=== PATIENT | female | born 1985 | race Caucasian/White ===

== ENCOUNTER 2017-11-18 14:13 | Day surgery (SDC) | payer OTHER, MEDICAID, SELFPAY ==
--- NOTE | 2017-11-18 | PATH_ITS ---
[facility] Accession Number: [id number] . 01 Material submitted: . PART A: SMALL BOWEL BIOPSY PART B: STOMACH BODY AND ANTRUM BIOPSY . 02 Diagnosis: A. Small Bowel, Biopsy: Small bowel mucosa with no diagnostic abnormality. Negative for active inflammation, features of sprue, dysplasia or malignancy. . B. Stomach, Antrum and Body, Biopsies: Gastric antral and body mucosa with mild chronic gastritis. Negative for Helicobacter organism by immunohistochemistry. Negative for intestinal metaplasia, dysplasia or malignancy. [facility]/11/23/2017 . 02 Electronically signed: . French Lopez MD, PhD, Pathologist NPI- [id number] . 01 Gross description: . Part A: SMALL BOWEL BIOPSY: Received in formalin are multiple fragment(s) of rodrigues, soft tissue measuring 0.6 x 0.3 x 0.2 cm in aggregate submitted entirely in 1 cassette(s) Part B: STOMACH BODY AND ANTRUM BIOPSY: Received in formalin are multiple fragment(s) of rodrigues, soft tissue measuring 1.0 x 0.3 x 0.2 cm in aggregate submitted entirely in 1 cassette(s) /CKI /CKI . 02 Microscopic: . Part B: An immunohistochemical stain is performed to evaluate for Helicobacter organisms and is negative. A control stain shows appropriate reactivity. . * This test was developed and its performance characteristics determined by [facility]. It has not been cleared or approved by the U.S. Food and Drug Administration. The FDA has determined that such clearance or approval is not necessary. This test is used for clinical purposes. It should not be regarded as investigational or for research. . 02 Pathologist provided ICD-10: K29.70 . 02 CPT . 438471, 714394, [id number] Performed at: 01 [facility] [address] [place] [address], [place], [place] [id number] MD Lyle Childs MD Phone: [phone] Performed at: 02 [facility] [address] [place] [id number] MD Prosper Wilson MD Phone: [phone]
[2017-11-18 14:24] VITALS: BP 148/88; PULSE 81; RESP 16; TEMP 36.8; O2SAT 97; BMI 40.7
[2017-11-18] MEDS: SODIUM CHLORIDE 0.9% 1,000 ML 70 ML IV (14:33)
--- NOTE | 2017-11-18 14:43 | PM.HP.1 ---
History of Present Illness Date Patient Seen: 11/18/17 Chief complaint: [id number] EGD Narrative: 32-year-old female who was previously seen in our office on 10/01/2017 for epigastric pain and diarrhea as well as nausea vomiting and heartburn who is now here for further evaluation to rule out any luminal pathology in the upper GI tract. Patient History Family & Social History Social History: household members significant other Meds Home Medications Medication Instructions Recorded Confirmed Type furosemide [Lasix] 20 mg PO QDAY #5 tab 05/03/17 Rx sulfamethoxazole-trimethoprim 1 tab PO BID 10 Days #0 tab 05/03/17 Rx Review of Systems Review of Systems All systems reviewed & are unremarkable except as noted in HPI and below Exam Vital Signs (past 8 hours): - 11/18/17 14:24 Temperature 98.3 F Pulse Rate 81 Respiratory Rate 16 Blood Pressure 148/88 H Pulse Oximetry 97 Oxygen Delivery Method Room Air Narrative Exam Narrative: General: Patient is obese, not in apparent distress Cardiovascular: Regular rate and rhythm, no murmurs, rubs, or gallops; no evidence of edema; no palpable abdominal aortic aneurysm Gastrointestinal: Normoactive bowel sounds, soft, nontender, nondistended, no rebound tenderness, no hepatosplenomegaly, no evidence of hernia Assessment & Plan Plan: Assessment/Plan Narrative: 32-year-old obese female who is here for evaluation of multiple upper GI symptoms including epigastric pain, nausea vomiting, heartburn. Her procedure will be done with anesthesia assistance due to her obesity and other comorbidities, as well as likely intolerance of conscious sedation. Regarding the procedure(s), the risks and potential complications, benefits, and alternatives (including not doing the procedure) were discussed with the patient. The risks include but are not limited to bleeding, infection, perforation which may require surgical intervention, missed lesions, and adverse reactions to sedative medicines. After a question and answer period, the patient agreed to proceed with the procedure(s) and gives informed consent.
--- NOTE | 2017-11-18 14:47 | P.HP_ITS ---
History of Present Illness Date Patient Seen: 11/18/17 Chief complaint: [id number] EGD Narrative: 32-year-old female who was previously seen in our office on 2017 for epigastric pain and diarrhea as well as nausea vomiting and heartburn who is now here for further evaluation to rule out any luminal pathology in the upper GI tract. Patient History Family & Social History Social History: household members significant other Meds Home Medications Medication Instructions Recorded Confirmed Type furosemide [Lasix] 20 mg PO QDAY #5 tab 05/03/17 Rx sulfamethoxazole-trimethoprim 1 tab PO BID 10 Days #0 tab 05/03/17 Rx Review of Systems Review of Systems All systems reviewed & are unremarkable except as noted in HPI and below Exam Vital Signs (past 8 hours): - 11/18/17 14:24 Temperature 98.3 F Pulse Rate 81 Respiratory Rate 16 Blood Pressure 148/88 H Pulse Oximetry 97 Oxygen Delivery Method Room Air Narrative Exam Narrative: General: Patient is obese, not in apparent distress Cardiovascular: Regular rate and rhythm, no murmurs, rubs, or gallops; no evidence of edema; no palpable abdominal aortic aneurysm Gastrointestinal: Normoactive bowel sounds, soft, nontender, nondistended, no rebound tenderness, no hepatosplenomegaly, no evidence of hernia Assessment & Plan Plan: Assessment/Plan Narrative: 32-year-old obese female who is here for evaluation of multiple upper GI symptoms including epigastric pain, nausea vomiting, heartburn. Her procedure will be done with anesthesia assistance due to her obesity and other comorbidities, as well as likely intolerance of conscious sedation. Regarding the procedure(s), the risks and potential complications, benefits, and alternatives (including not doing the procedure) were discussed with the patient. The risks include but are not limited to bleeding, infection, perforation which may require surgical intervention, missed lesions, and adverse reactions to sedative medicines. After a question and answer period, the patient agreed to proceed with the procedure(s) and gives informed consent.
--- NOTE | 2017-11-18 14:51 | PM.OP.ENDO ---
Operative Date/Time/Diagnoses Date of procedure: 11/18/17 Procedure Notes Procedure in detail: Surgeon: Steve Lakhani MD Procedure: Esophagogastroduodenoscopy with biopsy Preoperative diagnosis: Epigastric pain, nausea and vomiting Postoperative diagnosis: Normal EGD; biopsies obtained to rule out H pylori and celiac disease Medications: Monitored anesthesia care Preanesthesia Assessment An H and P was performed/updated and the Px?s ASA class is 2. The procedure was discussed in detail with the patient. The potential risks and complications including infection, bleeding, missed lesions, perforation, need for surgery in case of perforation, prolonged hospital stay, and were explained. A brief question and answer period was allotted and once all questions were answered, informed consent was obtained. The patient was brought back to the procedure room and placed on standard monitoring. The patient?s vital signs were monitored continuously throughout the entire procedure. Prior to starting, a timeout was performed to confirm the patient?s identity, allergies, medications, and procedure. Procedure in detail The patient was placed in left lateral decubitus position and a bite block was inserted. The tip of the upper endoscope was placed into the mouth and advanced without difficulty under direct visualization into the esophagus. Esophagus: The esophagus appeared normal with a regular Z-line at 39 cm from the incisors. Stomach: The gastric mucosa appeared normal with no evidence of ulcers or inflammation. Biopsies were obtained from the body and antrum to rule out H pylori Duodenum: The duodenal mucosa appeared normal with no evidence of inflammation or ulceration. Biopsies were obtained to rule out celiac disease The patient tolerated the procedure well and will be brought back to the recovery area to be discharged once criteria are met. Complications There were no complications and estimated blood loss was minimal from the biopsies. Recommendations: Resume previous diet Continue outPx medications Follow up pathology results Office follow up with Dr. Salcedo at next available appointment. Patient will need to call our office at [phone] An emergency contact number was given to the patient for any complications related to the procedure
--- NOTE | 2017-11-18 16:13 | PM.DS.1 ---
History of Present Illness Chief complaint: [id number] EGD Narrative: 32-year-old female who was previously seen in our office on 10/01/2017 for epigastric pain and diarrhea as well as nausea vomiting and heartburn who is now here for further evaluation to rule out any luminal pathology in the upper GI tract. Discharge Providers Primary care physician: Marcio Ren MD Discharge provider: Steve Lakhani MD Exam Vital Signs (past 8 hours): - 11/18/17 14:24 Temperature 98.3 F Pulse Rate 81 Respiratory Rate 16 Blood Pressure 148/88 H Pulse Oximetry 97 Oxygen Delivery Method Room Air Narrative Exam Narrative: General: Patient is obese, not in apparent distress Cardiovascular: Regular rate and rhythm, no murmurs, rubs, or gallops; no evidence of edema; no palpable abdominal aortic aneurysm Gastrointestinal: Normoactive bowel sounds, soft, nontender, nondistended, no rebound tenderness, no hepatosplenomegaly, no evidence of hernia Discharge Plan Discharge Plan Patient Disposition: Home Discharge Med Rec/Prescriptions Prescriptions: No Action sulfamethoxazole-trimethoprim 800 MG/160 MG tablet 1 tab PO BID 10 Days Qty: 0 RF: 0 furosemide [Lasix] 20 MG tablet 20 mg PO QDAY Qty: 5 RF: 0 Discharge Orders: Discharge (Order); Ordered 11/18/17 Ordered By: Steve Lakhani Provider Discharge Instructions Diet: Diet as Tolerated Visit Report/Discharge Packet Stand Alone Forms: Surgery Discharge Discharge Data Primary Care Provider: Marcio Ren Attending Provider: Steve Lakhani
[2017-11-18 16:18] VITALS: BP 109/64; PULSE 69; RESP 18; TEMP 35.8; O2SAT 94
[2017-11-18 16:23] VITALS: BP 112/66; PULSE 73; RESP 16; O2SAT 99
[2017-11-18 16:27] VITALS: BP 116/69; PULSE 66; RESP 18; O2SAT 98
[2017-11-18 16:32] VITALS: BP 108/64; PULSE 65; RESP 18; O2SAT 99
[2017-11-18 16:37] VITALS: BP 125/79; PULSE 66; RESP 18; O2SAT 98
== END 2017-11-18 17:06 | disposition home or self-care (01) ==
PROVIDERS: Family Provider Family Medicine; PCP Family Medicine; Visit Provider Internal Medicine Gastroenterology
PROC: 0DJ08ZZ Inspection of Upper Intestinal Tract, Via Natural or Artificial Opening Endoscopic (ICD-10-PCS; CPT 43235; principal; 2017-11-18 15:00)
DX: K29.70 Gastritis, unspecified, without bleeding (principal); Z87.891 Personal history of nicotine dependence; K21.9 Gastro-esophageal reflux disease without esophagitis; B18.2 Chronic viral hepatitis C; F11.21 Opioid dependence, in remission
CPT/HCPCS: 43239; 88305; 88342; J2704